=== PATIENT | female | born 1955 | race Caucasian/White ===

== ENCOUNTER 2017-08-05 15:27 | Inpatient (IN) | payer OTHER ==
[~2017-08-05] VITALS: Ht 172.7 cm; Wt 116.7 kg
--- NOTE | ~2017-08-05 | DS ---
[place], [place] DISCHARGE SUMMARY NAME: TA GONZALEZ UNIT #: [id number] ROOM: 314 DOCTOR: JANELLE SAN MD BIRTHDATE: [birth year] DOS: 08/09/2017 CHIEF COMPLAINT: "____ is wrong, you are the reason I was here last time." HISTORY OF PRESENT ILLNESS: This is a 62-year-old white female who is a resident of a local halfway who presented to the emergency room at [facility] acutely psychotic and agitated. While in the emergency room, she exhibited significant flight of ideas and was very bizarre. She was making bizarre comments and gestures, became very agitated and required multiple attempts to redirect and ultimately intramuscular injections to prevent harm to self and others. The halfway does report that her behavior has been escalating over the last several weeks prior to this admission and she has been threatening to other residents and staff. She has been taking her Clozaril and has been compliant with medication, so this decompensation is occurring well compliant with meds. She is admitted now to the [facility] to rule out organic factors and to attempt to stabilize on medication, returning to the least restrictive environment when psychiatrically stable. SUMMARY OF HOSPITAL COURSE: The patient was admitted to the unit where she initially was continued on her Clozaril 600 mg a day. When she was last here in 2014, she was stabilized on Invega Sustenna and had done quite well on that. She was rechallenged with oral Invega 6 mg in the morning and after tolerating a dose of this was given Invega Sustenna loading dose of 234 mg. After several days and continuation of her gross psychotic symptoms, her Clozaril was discontinued and she was started on Vraylar 1.5 mg a day, which was subsequently increased to 3 mg a day. She tolerated the Invega and the Vraylar well. She did exhibit some mild upper extremity tremor but that was not severe. Cogentin 1 mg twice daily was added with positive results. On the day of discharge, the patient's guardian had voiced a request to have her transferred to a [facility] facility where her benefits would cover and where she is well known by the facility. The patient was discharged then to the [facility] to have further treatment, ultimately returning to the least restrictive environment when psychiatrically stable. MENTAL STATUS AT DISCHARGE: The patient was alert and oriented. Mood still remained labile. Affect still at times is inappropriate. She remains silly and almost hebephrenic. She had word salad at times, but at other times, was able to carry on a reasonable conversation. She tended to be somewhat tangential, however, in her thinking. FINAL DIAGNOSIS: Schizoaffective disorder. PLAN: At this point in time, the patient's scripts have been printed and will be sent to her. The plan ultimately is to have her transferred from this psychiatric facility to another inpatient psychiatric facility within the [place] [facility]. [place], [place] DISCHARGE SUMMARY NAME: TA GONZALEZ UNIT #: [id number] ROOM: 314 DOCTOR: JANELLE SAN MD BIRTHDATE: [birth year] JANELLE SAN MD CM:DISCHBARBARA [id number] JANELLE SAN MD 08/12/17 0620 interface
--- NOTE | ~2017-08-05 | WRIGHTHP ---
[place], [place] PATIENT HISTORY AND PHYSICAL EXAM NAME: TA GONZALEZ UNIT #: [id number] ROOM: 314 DOCTOR: JANELLE SAN MD BIRTHDATE: [birth year] DOS: 08/06/2017 INITIAL PSYCHIATRIC EVALUATION. CHIEF COMPLAINT: "You're wrong, you're the reason why I was here last time." HISTORY OF PRESENT ILLNESS: This is a 62-year-old white female who is a resident of a local nursing home. The patient presented to the Emergency Room grossly psychotic and very agitated. While in the Emergency Room, she exhibited significant flight of ideas and was very bizarre. She was making very bizarre comments and gestures. She became very agitated and required multiple attempts to redirect. The nursing home reports that her behavior has escalated over the last several weeks prior to admission and that she has become threatening to other residents and staff. She has been taking her Clozaril, but seems to be decompensating nonetheless. She is admitted now to rule out organic factors to stabilize on medication, ultimately returning to the least restrictive environment when psychiatrically stable. MENTAL STATUS EXAMINATION: This morning, the patient is alert and oriented to person, place, unclear about time. She was not able to focus enough on the interview to give me specific answers. She did exhibit extreme mood lability and was in general manic and over exuberant. The patient tended to be rather flighty and jumped from topic to topic. She exhibited significant tangential thinking as well as word salad at times. I was not able to fully test memory because of her inability to totally. DIAGNOSIS: Schizoaffective disorder. PLAN: I have maintained her on her Clozaril dose of 600 mg a day. When she was last here in 2014, she had been stabilized on Invega Sustenna. I will restart Invega 6 mg in the morning and plan to load her with Invega Sustenna to try to break the psychosis. Given the fact that she decompensated well on the Clozaril, I may discontinue this agent and use a more metabolically friendly agent such as to see if we can impact more positively on her psychotic symptoms. We will engage her in individual and mendes milieu activity with the ultimate plan to return to the at least restrictive environment when psychiatrically stable. [place], [place] PATIENT HISTORY AND PHYSICAL EXAM NAME: TA GONZALEZ UNIT #: [id number] ROOM: [facility] DOCTOR: JANELLE SAN MD BIRTHDATE: [birth year] JANELLE SAN MD CM:HISPHYS:PATIENT HISTORY AND PHYSICAL EXAMINATION 2 3 JANELLE SAN MD 08/06/17943 interface
--- NOTE | ~2017-08-05 | PR ---
[place], [place] PROGRESS NOTE NAME: TA GONZALEZ UNIT #: [id number] ROOM: 314 DOCTOR: JANELLE SAN MD BIRTHDATE: [birth year] DOS: 08/07/2017 CHIEF COMPLAINT: "Yes, I come from a residential." SUMMARY OF THE VISIT: The patient was interviewed as she sat in the dining area waiting for breakfast. Upon my approach, she engaged readily in conversation. Her conversation was silly and disjointed. She presented much of the information with a singsong voice and was very silly and at times inappropriate. She was pleasant, however, and was not agitated in any fashion. There was no effort to be verbally or physically aggressive. Nurses report that she has been compliant with her medication and continues to be flighty and disjointed overall. She requires a great deal of support and redirection to maintain her ADLs. MENTAL STATUS: She is alert and oriented to person, place. It is unclear regarding time. Mood is still labile. Affect at times is very inappropriate. She does have flight of ideas and at times word salad. Memory is hard to ascertain because of her lack of cooperation. PLAN: Given the fact that she was compliant with the Clozaril, but decompensated nonetheless, I will go ahead and discontinue the Clozaril. Due to its risk of hyperglycemia and hyperlipidemia, I believe that a ____ atypical at this point would be warranted. She is compliant with the Invega and has tolerated it well and in the past was sustained with Invega Sustenna with good benefits. I will go ahead now and load her with Invega Sustenna 234 mg IM today, planning to give her the secondary loading dose of 156 mg in several days. I will start her on Vraylar 1.5 mg at bedtime as a secondary atypical to try to break the psychosis given her lengthy psychiatric history of schizoaffective disorder. We will engage her in individual and mendes milieu activity with the ultimate plan to return to the residential from which she came. JANELLE SAN MD CM:PNTRANS [phone] JANELLE SAN MD 08/07/17 180 interface
--- NOTE | ~2017-08-05 | PR ---
[place], [place] PROGRESS NOTE NAME: TA GONZALEZ UNIT #: [id number] ROOM: 314 DOCTOR: JANELLE SAN MD BIRTHDATE: [birth year] DOS: 08/08/2017 CHIEF COMPLAINT: "Oh look at him over there." SUMMARY OF THE VISIT: The patient was interviewed as she sat in the dining area waiting for her breakfast. She was sitting with a male peer. She was very attentive to him and engaged readily in conversation with me, albeit rather disjointed and fragmented. Her responses still tend to be tangential and at times, word salad, but she is pleasantly psychotic. There is a small amount of improvement in that she is able to engage more readily in meaningful conversation. Of note, she has significant upper extremity tremor which is not intensified when she puts her hands out, but is nonetheless present. MENTAL STATUS: She is alert and oriented. There is a great deal of fragmented thinking and she is tangential and again as mentioned previously, engages in word salad at times. Memory for most events seems to be intact, although it is very difficult to ascertain because of her psychotic symptomatology. PLAN: At this point in time, she was loaded with Invega Sustenna 234 mg on August 07. I will do a secondary loading dose of 156 mg IM on August 12. She is tolerating the Vraylar well at 1.5 mg at bedtime, so we will increase this to 3 mg at bedtime. Given the amount of tremor that she is having, we will add Cogentin 1 mg twice daily and monitor for improvement. We will continue to engage her in individual and mendes milieu activity. Continue to explore alternative placements and discharge when either psychiatrically stable or if the guardian requests to a VA facility for further treatment. JANELLE SAN MD CM:PNTRANS [phone] JANELLE SAN MD 08/08/17 1100 interface
[~2017-08-05 15:27] MED LIST: BENZTROPINE MESY1 MG PO; BENZTROPINE1 MG PO; BUSPIRONE10 MG PO; CEFTIN500 M1 PO; CLOZAPINE100 MG PO; DOCUSATE CALCI240 MG PO; EC NAPROSYN500 MG PO; HALDOL5 MG PO; INVEGA SUSTENN156 MG IM; LANAVITE1 CAP PO; LORAZEPAM2 MG PO; MOTRIN800 MG PO; MULTI VITAMINS1 TAB PO; SENORMIN50 MG PO; STOOL SOFTENER240 M2 PO
[2017-08-05 15:33] VITALS: BP 140/90
--- NOTE | 2017-08-05 16:11 | NUR ---
patient is resting with eyes closed in bed.
--- NOTE | 2017-08-05 16:32 | NUR ---
PATIENT RESTING COMFORTABLY IN ROOM, TALKING TO HERSELF OCCASIONALLY. PATIENT HAS BEEN UNGOWNED AT THIS TIME, AND IS WITHIN FULL VIEW OF THE NURSES STATION
--- NOTE | 2017-08-05 16:42 | NUR ---
WALLET, CIGARETTES, VOYAGE MANAGEMENT SYSTEM OPERATOR, PURSE, AND CLOTHING IN MEDICATIONS ROOM
[2017-08-05 16:54] LABS: BILIRUBIN NEGATIVE (NEGATIVE); BLOOD NEGATIVE (NEGATIVE); CLARITY CLEAR (CLEAR); COLOR YELLOW (YELLOW); GLUCOSE NEGATIVE (NEGATIVE); KETONE TRACE (NEGATIVE); LEUKO ESTERASE NEGATIVE (NEGATIVE); NITRITE NEGATIVE (NEGATIVE); UROBILINOGEN 0.2 E.U./dl (0.2-1.0)
[2017-08-05 16:56] LABS: BASO % 0.2 % (0.0-1.0); HEMATOCRIT 40.2 % (37.0-47.0); HEMOGLOBIN 13.5 g/dl (12.0-16.0); LYMPH # 2.3 10*3/uL (1.3-4.4); LYMPH % 21.1 % (27.0-41.0); MEAN CELL VOLUME 84.1 fl (81.0-99.0); MEAN CORPUSCULAR HGB 28.2 pg (27.0-31.0); MEAN CORPUSCULAR HGB CONC 33.6 g/dl (33.0-37.0); MEAN PLATELET VOLUME 10.9 fl (9.6-12.3); MONO # 0.8 10*3/uL (0.1-1.0); MONO % 7.8 % (3.0-9.0); NEUT # 7.6 10*3/uL (2.3-7.9); NEUT % 70.5 % (47.0-73.0); PLATELET COUNT AUTOMATED 173 10*3/uL (130-400); RED BLOOD COUNT 4.78 10*6/uL (4.10-5.10); RED CELL DISTRI WIDTH 15.2 % (0-14.5); WHITE BLOOD COUNT 10.7 10*3/uL (4.8-10.8)
[2017-08-05 17:03] LABS: RBC 0-2 rbc/hpf (0-2); URINE AMPHETAMINES < 1000 (1000ng/ml); URINE BARBITURATES < 200 (200ng/ml); URINE BENZODIAZEPINES < 200 (200ng/ml); URINE CANNABINOIDS (THC) < 50 (50ng/ml); URINE COCAINE < 300 (300ng/ml); URINE METHADONE < 300 (300ng/ml); URINE OPIATES < 300 (300ng/ml)
[2017-08-05 17:04] LABS: URINE PHENCYCLIDINE < 25 (25ng/ml)
[2017-08-05 17:13] LABS: ALBUMIN 3.4 gm/dl (3.1-4.5); ALKALINE PHOSPHATASE 118 U/L (45-117); BUN 14 mg/dl (7-24); CHLORIDE 97 mmol/L (98-107); CREATININE 0.72 mg/dL (0.55-1.02); SGOT/AST 20 IU/L (3-35); SGPT/ALT 18 U/L (12-78); SODIUM 132 mmol/L (136-145); TOTAL PROTEIN 7.4 gm/dL (6.4-8.2)
[2017-08-05 17:15] LABS: ACETAMINOPHEN (TYLENOL) < 2.0 ug/ml (10-30); ETHYL ALCOHOL < 3.0 mg/dl (<3)
--- NOTE | 2017-08-05 18:27 | NUR ---
CALLED [facility] TO INFORM OF PATIENT ADMISSION.
--- NOTE | 2017-08-05 18:40 | NUR ---
U STAFF GIVEN INFO ON PATIENT. WILL CALL BACK OR COME TO DEPT FOR PATIENT TRANSFER. PT REMAINS CALM AND COOPERATIVE, PLEASANT WITH ED STAFF.
--- NOTE | 2017-08-05 20:01 | NUR ---
RN TO CALL BACK TO ER FOR REPORT.
--- NOTE | 2017-08-05 20:04 | NUR ---
NURSE FROM [facility] IS GOING TO CONTACT [facility] TO GET LIST OF MEDICATIONS, SHE WILL THEN CALL DR. SAN AND GET ORDERS BEFORE COMING DOWN TO ER DEPT TO GET PATIENT.
--- NOTE | 2017-08-05 20:27 | NUR ---
CALLED [facility] & SPOKE WITH MICKIE RUBY ON RAILS DEVELOPER & SHE STATED THAT PT HAS A LEGAL GUARDIAN, PRITI COLE (PERSONNEL INTERVIEWER) & SHE HAS THE PAPER WORK BUT IS UNABLE TO FAX INFORMATION TONIGHT SHE DOESNT HAVE ACCESS TO A FAX MACHINE. STATED SHE WILL HAVE INFORMATION SENT TOMORROW. ALSO REVIEWED PTS MEDICATION LIST & UPDATED PTS MEDICAL HX.
--- NOTE | 2017-08-05 20:45 | NUR ---
DR SAN NOTIFIED OF ADMISSION WITH ORDERS RECEIVED. INFORMED DR SAN THAT PT HAS A LEGAL GUARDIAN & WAS UNABLE TO REACH HIM THIS EVENING SO ER DR WOULD HAVE TO PINK SLIP PT TONIGHT UNTIL VOLUNTARY CONSENT IS OBTAINED.
--- NOTE | 2017-08-05 20:47 | NUR ---
CALLED ED & SPOKE WITH OBI & INFORMED HIM THAT PT HAS A LEGAL GUARDIAN & ER DR WOULD HAVE TO PINK SLIP PT & HE STATED UNDERSTANDING.
--- NOTE | 2017-08-05 21:33 | NUR ---
[facility] TO COME DOWN TO ER TO GET PATIENT FOR ADMISSION TO THEIR UNIT. AWAITING RN TO COME DOWN
[2017-08-05] MEDS ORDERED: Depakote250 MG PO ×2 (21:35→21:37)
[2017-08-05] MEDS ORDERED: CLOZAPINE PO (21:41)
--- NOTE | 2017-08-05 22:15 | NUR ---
TA GONZALEZ a 62 year old F admitted via wheel chair from the EMERGENCY ROOM as a emergency 72 hr. hold admission. Arrived on unit at 2215. ALLERGIES: SULFA Vital signs are: [id number] 156/88. The client signed the following forms with stated understanding: Clothing List & PATIENTS RIGHTS. ATTEMPTED TO CONTACT PRITI COLE, LEGAL GUARDIAN FOR CONSENT FOR VOLUNTARY ADMISSION & RECEIVED ANSWERING MACHINE AT HIS OFFICE. Admitted under the services of Dr. JASWINDER CAPUTO,[facility]. A search was conducted and hazardous articles were removed. Client was oriented to the unit. PT IS VERY ELATED & JOVIAL WITH INAPPROPRIATE LAUGHTER. SPEECH IS TANGENTIAL & LOUD WITH FLIGHT OF IDEAS. GRANDIOSE DELUSIONS VOICED. ALERT & ORIENTED X 3. PT STATED THAT BOLOGNA WAS THROWN AWAY AT THE ASSISTED & SHE WENT TO GET IT OUT OF THE GARBAGE. CONVERSATION DOES FOCUS ON FOOD ITEMS. PT STATED THAT SHE LIKES VEGETABLES & BEANS & HAD A WONDERFUL TURKEY DINNER HERE BEFORE. STATED THAT SHE IS "PISSED OFF @ [facility] & NOT TALKING TO HER RIGHT NOW. SHE THREATENED TO SEND ME TO THE [facility]. SHE WANTS [facility]. TOUGH SHIT." MARIBETH LEWIS
[2017-08-05 22:53] VITALS: BP 156/88
[2017-08-05 22:59] VITALS: BP 156/88
--- NOTE | 2017-08-06 00:51 | NUR ---
DR LYNN NOTIFIED OF MEDICAL CONSULT. STATED TO PUT THE CONSULT UNDER DR BRYANT.
--- NOTE | 2017-08-06 05:55 | NUR ---
PT HAS BEEN OBSERVED ON Q 15 MIN CHECKS & HAS SLEPT QUIETLY THROUGHOUT THE SHIFT PAST 0015.
[2017-08-06 08:50] VITALS: BP 130/71
--- NOTE | 2017-08-06 08:53 | NUR ---
ON UNIT TO ASSESS PATIENT AT THIS TIME.
--- NOTE | 2017-08-06 09:39 | NUR ---
PATIENT ATE 90% OF BREAKFAST THIS MORNING. MEDICATION COMPLIANT WITH INVEGA. AWAITING PHARMACY TO BRING/FILL DEPAKOTE AT THIS TIME. BIZARRE BEHAVIORS OBSERVED FROM PATIENT DURING INTERACTIONS. SPEECH IS PRESSURED WITH FLIGHT OF IDEAS PRESENT. NO HALLUCINATION NOTED AT THIS TIME. INAPPROPRIATE LAUGHTER NOTED WHILE SITTING IN THE DINNING ROOM THROUGHOUT THE MORNING.
--- NOTE | 2017-08-06 12:34 | NUR ---
[facility], patient's information given, case resolution specialist Ela returned call, she stated patient is highly serviced and requested clinicals be faxed, these were faxed to Ela, per Ela, no beds available in [facility]
--- NOTE | 2017-08-06 16:20 | NUR ---
DR. CHARLES AND DR. NATHAN ON UNIT TO SEE PT AT THIS TIME, MADE AWARE OF ABNORMAL SODIUM LEVEL.
--- NOTE | 2017-08-06 18:20 | NUR ---
PT TO RADIOLOGY FOR CT OF HEAD AT THIS TIME WITH TRANSPORTER, SECURITY, AND [place].
--- NOTE | 2017-08-06 18:22 | NUR ---
JESSICA left VM at Guardian's Office about fax #. JESSICA received a VM back from office fax # [phone]. JESSICA askewd House Manager to fax VA form and admission paperwork for signature.
--- NOTE | 2017-08-06 18:29 | NUR ---
PT BACK TO UNIT AT THIS TIME.
--- NOTE | 2017-08-06 18:31 | NUR ---
PT IS ALERT AND ORIENTED TO PERSON. PSYCHOTIC THOUGHT PROCESS PRESENT. A/V HALLUCINATIONS QUESTIONED, ALTHOUGHT PATIENT DENIES, D/T PATIENT LOOKING AROUND UNIT, MOVING MOUTH, AND BLURTING OUT INAPPROPRIATE/NON SENSICAL STATEMENTS. LIMITED INTERACTIONS WITH PEERS, DOES NOT INITIATE CONVERSATIONS WITH PEERS. SITS TO HERSELF IN DAY ROOM EVEN WITH ENCOURAGE FROM STAFF. ENCOURAGED TO BE LESS ISOLATIVE WITH NO EFFECT. YELLS OUT INAPPROPRIATE COMMENTS TO STAFF THROUGHOUT THE DAY. WOUND CARE NURSE ON UNIT AND PATIENT YELLED OUT TO HER "PRETTY LIKE YOUR PUSSY!" REALITY PRESENTED/ RE-ORIENTED WITH MINIMAL EFFECT. BILATERAL HAND TREMORS PRESENT. MEDICATION COMPLIANT WITHOUT DIFFICULTY. POOR HYGIENE AND DISHEVELED DRESS NOTED. MINIMAL EYE CONTACT DURING INTERACTIONS WITH STAFF. APPETITE GOOD FOR MEALS. TAKING FLUIDS WELL. NAPS INTERMITTENTLY THROUGHOUT THE DAY FOR SHORT PERIODS OF TIME, TOTAL OF APPROPRIATELY 1-2 HOURS THIS SHIFT. INAPPROPRIATE LAUGHTER ALSO CONTINUES THROUGHOUT THE DAY. OTHERWISE, PATIENT HAS BEEN CALM AND COOPERATIVE DURING BIZARRE BEHAVIORS. AMBULATES INDEPENDENTLY WITH SLOW AND STEADY GAIT. WILL CONTINUE TO ENCOURAGE PT TO ATTEND AND PARTICIPATE IN GROUP THERAPY AND INCREASE POSITIVE/ APPROPRIATE INTERACTIONS WITH PEERS AND STAFF. WILL CONTINUE WITH Q15 MIN OBSERVATION CHECSK PER ORDERS. RESPIRATIONS EASY AND EVEN ON ROOM AIR. NO ACUTE DISTRESS NOTED. SEE [facility] FLOWSHEET FOR SPECIFIC MONITORING.
[2017-08-06 20:00] VITALS: BP 134/74
[2017-08-06 21:02] VITALS: BP 134/74
--- NOTE | 2017-08-06 22:10 | NUR ---
24 HR chart check completed.
--- NOTE | 2017-08-07 06:19 | NUR ---
PT HAS BEEN OBSERVED ON Q 15 MIN CHECKS & HAS SLEPT QUIETLY THROUGHOUT THE SHIFT PAST 2244.
--- NOTE | 2017-08-07 07:32 | NUR ---
Exercise/Trivia-Morning group BINGO-Afternoon group Morning group of exercise helps patients stay active and joints mobile,trivia helps with socialization,thinking and focusing Afternoon group helps with socialization,thinking,focusing and self esteem This Patient did attend both groups as wellas participate. This patient followed direction and focused well during exercise. Put during trivia patient was yelling out and giggling. Patient stated some inappropriate things x2 and was reminded we do not speak that way. Patient redirected. Patient did not participate in trivia. patient refused to join other patient at larger table saying she was fine where she was and only wanted to watch. Patient did participate during BINGO with 1:1 help. Patient giggled and talked with herself. Patient redirected multipule times
[2017-08-07 08:17] VITALS: BP 137/75
--- NOTE | 2017-08-07 11:35 | NUR ---
PT RECEIVED INVEGA SUSTENNA IM INJECTION TO RIGHT DELTOID.
--- NOTE | 2017-08-07 15:37 | NUR ---
PT ALERT TO PERSON AND PLACE. PT MED COMPLIANT WITHOUT DIFFICULTY, MED EDUCATION PROVIDED. PT OBSERVED T0 BE TALKING TO UNFORSEEN OTHERS AT TIMES, INAPPROPRIATE LAUGHTER NOTED AT TIMES. PT CALM, INTERACTING AND PARTICIPATING IN GROUPS WITH OTHERS. PT DENIES ANY HOMICIDAL/SUICIDAL THOUGHTS. NO AGGRESSION OR COMBATIVE BEHAVIOR NOTED. PT AMBULATORY THROUGHOUT UNIT, GAIT STEADY. PT CONTINENT OF BOWEL AND BLADDER. PLAN IS TO ENCOURAGE PT TO PARTICIPATE IN GROUPS/ACTIVITIES, MONITOR BEHAVIORS ON Q15 MIN SAFETY CHECKS.
--- NOTE | 2017-08-07 19:36 | NUR ---
SW RECEIVED vm FROM [facility] AND RETRUNED CALL. aTTOENRY Payam Silva WOULD LIKE pT TRANSFERRED TO va AT [facility]. HE WILL BE IN TO VISIT. ON SATURDAY. PT DOES HAVE MEDICARE AND [place] COVERAGE.
[2017-08-07 20:12] VITALS: BP 117/68
--- NOTE | 2017-08-07 22:10 | NUR ---
PATIENT LAYING IN BED TALKING AND LAUGHING WITH SELF. THIS NURSE ASKED PATIENT WHO SHE WAS TALKING TO AND PATIENT STATED NO ONE. PATIENT EUPHORIC AND ANIMATED. PATIENT PLEASANT AND COOPERATIVE. MEDICATION COMPLIANT
--- NOTE | 2017-08-08 03:14 | NUR ---
B: ALTERED MENTAL STATUS I: THERAPEUTIC COMMUNICATION, 1:1 R: I FEEL JUST FINE RIGHT NOW P: MEDICATION COMPLIANCE, PARTICIPATE IN GROUP ACTIVITIES
--- NOTE | 2017-08-08 05:18 | NUR ---
24 HR chart check completed.
--- NOTE | 2017-08-08 05:53 | NUR ---
Q 15 MINUTE SAFETY CHECKS MAINTAINED. SLEPT > 6 HRS THROUGHOUT SHIFT
[2017-08-08 07:56] VITALS: BP 118/66
--- NOTE | 2017-08-08 08:04 | NUR ---
Exercise/Letter to yourself-morning group. Helps with self esteem,coping skillsfocusing and creativity when decorating card. BINGO-Afternoon group. This helps withsocializing self esteem,focusing and concentation. Patient did attend both morning and afternoon groups. Patient followed dircetion and stated on task but would giggle and speak to herself.Patient did very well when writing to herself,she did not want it mailed but requested i keep it until she goes home.Patient followed direction well. Patient was inattendence for BINGO but choose not to participate. Made suggetions to patient of activity she could do herslf and patient choose a book and sat very quietly during group reading. Patient stayed on task for at least 65 minutes
[2017-08-08 08:33] LABS: BUN 10 mg/dl (7-24); CHLORIDE 100 mmol/L (98-107); CREATININE 0.67 mg/dL (0.55-1.02); POTASSIUM 4.2 mmol/L (3.5-5.1); SODIUM 137 mmol/L (136-145)
--- NOTE | 2017-08-08 10:49 | NUR ---
PT IS ALERT AND ORIENTED TO PERSON AND PLACE. DIFFICULT TO ASSESS MEMORY D/T CONTINUATION OF PSYCHOTIC THOUGHT PROCESSES. PT CONTINUES TO EXHIBIT QUESTIONABLE A/V HALLUCINATIONS PT IS NOTED TO BE MOVING MOUTH THOUGH TALKING TO HERSELF OR UNSEEN OTHERS AND GLANCING AROUND THE ROOM DESPITE PT'S DENIAL OF HALLUCINATIONS. PT DENIES SI/HI. PT IS PLEASANT AND COOPERATIVE, CONTINUES WITH INAPPROPRIATE/NON-SENSICAL SPEECH AT TIMES. PT CONTINUES TO SIT IN DINING ROOM IN CORNER WITH LIMITED INTERACTIONS WITH STAFF AND PEERS DESPITE ENCOURAGEMENT. REALITY ORIENTATION PROVIDED WITH MINIMAL SUCCESS. WILL CONTINUE TO PROVIDE REALITY ORIENTATION AND ENCOURAGE PARTICIPATING IN GROUPS AND SOCAILIZATION APPROPRIATE. TREMORS TO BUE CONTINUE, DR. SAN AWARE, N.O FOR COGENTIN STARTED THIS AM. WILL MONITOR FOR EFFECTIVENESS. PT IS MEDICATION COMPLIANT WITHOUT DIFFICULTY. AMBULATORY WITH STEADY GAIT, INDEPENDENT WITH ADLS, CONTINENT OF BOWEL AND BLADDER, DISPLAYS GOOD APPETITE WITH ADEQUATE FLUID INTAKE. NO DISTRESS NOTED. Q15 MIN SAFETY CHECKS MAINTAINED, REFER TO [facility] FLOWSHEET FOR SPECIFIC MONITORING.
--- NOTE | 2017-08-08 10:55 | NUR ---
Patient not available for Occupational Therapy evaluation this date as he is in group therapy. OTR will attempt at a later date. Thank you for this referral. Vicky Kim OTR/ikrt
--- NOTE | 2017-08-08 12:53 | NUR ---
Exercise/Reminiscing This is a good group to help patients stay active and help with memory,concentration,focusing, thinking and socializing. This patient did attend group but only participated in the exercise portion of group. during this time patient had to be reminded 3-4x to not interupt group with speaking or giggling.Patient was redirected back to participation. during "rowing" of the arms patient will lead everyone in the song "row row row your boat." Patient refused to participate in the reminiscing portion of the group but sat quietly while other patients reminisced
--- NOTE | 2017-08-08 13:55 | NUR ---
PT AGITATED AND ANXIOUS FOLLOWING VISIT FROM GUARDIAN, PT UPSET BECAUSE SHE HAD HAD A LUNCH DATE SCHEDULED WITH HER GUARDIAN FOR TODAY PRIOR TO ADMISSION TO THE HOSPITAL. PT REQUESTING MEDICATION TO CALM DOWN, SPEECH PRESSURED, NONSENSICAL AT TIMES, PT VISIBLY ANXIOUS/UPSET, REDIRECTION AND 1:1 TECHNIQUES USED AND THERAPEUTIC COMMUNICATION FACILITATED BY RN WITH POSITIVE EFFECT. NO PRN MEDICATION REQUIRED AT THIS TIME, WILL CONT TO MONITOR.
--- NOTE | 2017-08-08 16:52 | NUR ---
SHIFT CHART CHECK COMPLETED.
--- NOTE | 2017-08-08 17:59 | NUR ---
PT EXHIBITING SIGNS OF AUDITORY HALLUCINATIONS AT THIS TIME, TALKING TO UNSEEN OTHERS, CONVERSATION OF A VULGAR AND VIOLENT NATURE. REDIRECTION PROVIDED WITH MINIMAL EFFECT.
--- NOTE | 2017-08-08 18:00 | NUR ---
PT REFUSED ALL MEALS THIS SHIFT DESPITE ENCOURAGEMENT FROM STAFF, WHEN QUESTIONING PT TO WHY SHE WASN'T EATING, PT WAVED HER HAND AT THIS NURSE GESTURING FOR THIS NURSE TO LEAVE HER PRESENCE, REFUSED TO ELABORATE WHY SHE WOULDN'T EAT AND DECLINED ORDERING A DIFFERENT MEAL.
--- NOTE | 2017-08-08 18:20 | NUR ---
PT SITTING IN DINING ROOM YELLING AT UNSEEN OTHERS, THIS NURSE APPROACHED PT, PT STATES "I'M FINE. I'M JUST GONNA GO BHARGAV CARRILLO UP AT [employer]. BYE!" PT ALSO STATES "I HAVE CROTCHES. TONS OF CROTCHES UP MY ASS. YOU DON'T HAVE A JOB AND YOU NEVER WILL." REDIRECTION MINIMALLY INEFFECTIVE. PT WITH OUTBURTS OF INAPPROPRIATE LAUGHTER. PT REDIRECTED TO QUIET ROOM, PT REFUSED TO RELOCATE FROM DINING ROOM. STAFF SITTING IN DINING ROOM, WILL CONT TO MONITOR.
--- NOTE | 2017-08-08 18:32 | NUR ---
PT CONTINUES TO SIT IN DINING ROOM YELLING, USING PROFANE LANGUAGE, INAPPROPRATE LAUGHTER, HAVING MULTIPLE CONVERSATIONS WITH UNSEEN OTHERS, ONE CONVERSATION REVOLVES AROUND THE 'MAFIA' AND ANOTHER AROUND RACIAL SLURS. PT APPEARS MANIC, SPEECH IS PRESSURED, LOUD, TANGENTIAL WITH FLIGHT OF IDEAS AND NONSENSICAL AT TIMES D/T WORD SALAD. REDIRECTION AND 1:1 INEFFECTIVE. PT WAS GIVEN PO ATIVAN 1MG AT 1825, PT STATES "OH GOOD. ATIVAN, YEP, THAT'LL CALM ME DOWN IN ONE MINUTE, YEP. YEP. EMERITA FELDER." PT STATES TO THIS NURSE "YUP, YOU ARE MASSALION TIGERS!" WILL MONITOR FOR CHANGES.
[2017-08-08 19:40] VITALS: BP 146/79
--- NOTE | 2017-08-08 20:00 | NUR ---
SW CALLED [facility] AND LEFT FOR BEDCOUNT FOR TRANSFER OF PT. fEMALE BEDS ARE AVAILBLE.
--- NOTE | 2017-08-08 20:01 | NUR ---
SW MEET WITH DORIAN QUINTANILLA. aTTORNEWBeata COLE SIGNED FORMS. HE WOULD LIKE PT TRANSFERRED TO [facility] DUE TO THEM KNOWING HER BETTER. JESSICA WILL HAVE CM FAXED FORM BACK TO [place] FOR TRANSFER.
--- NOTE | 2017-08-08 20:02 | NUR ---
SW FAXED [facility] FORM TO CM OFFICE AND LEFT VM FOR THEM REGARDING TRANSFER.
--- NOTE | 2017-08-09 00:22 | NUR ---
DURING MED PASS PT HAD INAPPROPRIATE LAUGHING, CALLING ANOTHER NURSE "PIG, PIG, PIG, PIG" PT THEN ATTEMPTED TO FOLLOW NURSE DOWN THE HALLWAY AND TRIED TO ELOPE PUSHING ON THE DOORS. PT WAS REDIRECTABLE AFTER MULTIPLE PROMPTS. MEDICATION COMPLIANT. AFTER PT RETIRED TO BED PT DEESCULATED. NO FURTHER INAPPROPRIATE BEHAVIORS NOTED AT THIS TIME.
--- NOTE | 2017-08-09 01:16 | NUR ---
24 HR chart check completed.
--- NOTE | 2017-08-09 06:21 | NUR ---
PT SLEPT APPROXIMATELY 7 HOURS THIS SHIFT. NO S/S OF DISTRESS NOTED. NO C/O PAIN. SEE [facility] FLOWSHEET FOR SPECIFIC MONITORING. Q15 MINUTE SAFETY CHECKS MAINTAINED.
--- NOTE | 2017-08-09 07:05 | NUR ---
PT BEING LOUD AND DISRUPTIVE. USING VULGAR LANGUAGE. PT WAS YELLING AT OTHER PTS AND GETTING ANOTHER PT AGITATED TO THE POINT THE OTHER PT GOT UP TO GO AFTER THIS PT AND 2 NURSES HAD TO STEP INBETWEEN THEM TO PREVENT A DISPUTE. PRN ATIVAN 1MG GIVEN AT THIS TIME.
--- NOTE | 2017-08-09 07:51 | NUR ---
Seasons/Reminiscing -Afternoon (08/08/17) This group helps a patient with memory, concentration,thinking,and socialization. Patient did come to group but constantly interupted by yelling out,using inappropriate words and could not be redirected. reminded patient of not using those types of words and if she could not stop yelling out and interupting she would have to leave the room. Patient left group
[2017-08-09 08:00] VITALS: BP 137/82
--- NOTE | 2017-08-09 08:37 | NUR ---
TREATMENT TEAM WAS HELD WITH THE FOLLOWING: DR. SAN, RN.AT.. PT MAY BE TRANSFERRED TO [facility] PER GUARDIAN REQUEST. PAERS WERE FAXED YESTERDAY.
[2017-08-09] MEDS ORDERED: BENZTROPINE MESY1 MG PO (09:53)
[2017-08-09] MEDS ORDERED: VRAYLAR3 MG PO (09:53)
[2017-08-09] MEDS ORDERED: PALIPERIDONE ER6 MG PO (09:53)
[2017-08-09] MEDS ORDERED: INVEGA SUSTENN156 MG IM (09:53)
--- NOTE | 2017-08-09 11:45 | NUR ---
spoke with Dr. sotelo in regards to possible transfer of pt. to the via. Dr. sotelo states that if the Guardian approves such d/c he has no authority to override that decision if a bed is available. spoke with JESSICA Caldera who states that [facility] signed the [facility] yesterday and faxed it to the dept[facility] to fax to the [facility]. spoke with Lena Cisneros who sates she spoke with JESSICA RAND who is to fax updated information to the [facility] and facilitate thru [facility] at the [facility] the [facility].
--- NOTE | 2017-08-09 13:13 | NUR ---
Exercise/Independent Activity Exercise helps with staying active, circulation, joints mobile. And indepedent activity allows a patient to choose what they want to do which helps them think and concentrate Patient did attend group this morning as well as participated. Patient needed reminded not to interupt while anyone was talking several times. Pkept stating she was "brain damaged." Patient was redirected several times. Patient sings "row row row your boat" while exercising. Patient choose to draw as her activity so she did not need very much 1:1. Patient talked to herself while drawing pictures.
--- NOTE | 2017-08-09 13:32 | NUR ---
NOTIFIED ON PT DISCHARGE SET FOR 1430. NO FURTHER ORDERS AT THIS TIME.
--- NOTE | 2017-08-09 13:37 | NUR ---
PT ALERT TO PERSON AND PLACE. PT MED COMPLIANT WITHOUT DIFFICULTY. PT OBSERVED TO BE SPEAKNG TO UNFORSEEN OTHERS. SPEECH IS LOUD AND PRESSURED.PT CAN BE INTRUSIVE AND DISRUPTIVE TO OTHERS. PT DENIES ANY HOMICIDAL/SUICIDAL THOUGHTS. PT AMBULATORY THROUGHOUT UNIT, GAIT STEADY. PT CONTINENT OF BOWEL AND BLADDER. PLAN IS TO ENCOURAGE PT TO PARTICIPATE IN GROUPS/ACTIVITIES, MONITOR BEHAVIOR ON Q15 MIN SAFTEY CHECLS.
--- NOTE | 2017-08-09 14:18 | NUR ---
NURSE TO NURSE REPORT GIVEN TO CHAYA, CHARGE NURSE, AT THE [facility].
--- NOTE | 2017-08-09 15:30 | NUR ---
Decorating pumpkins This will be benificial to the patient because theyll need to think and concentrate,helps with socialization and self esteem. Patient did attend group today as well as participate. Patient interuppted other people,myself included, while they were talking numerous times. Patient was reminded she needed to listen to what staff is saying and not interupt.Patient choose to color rather than decorate her pumpkin.
--- NOTE | 2017-08-09 16:57 | NUR ---
JESSICA RECEIVED VM AND CALL FROM [facility] TESSY . JESSICA FAXED INFORMATION FOR [facility] TO REVIEW. TESSY SHORT CALL BACK AFTER SHE SPEAKS WITH PSYCHIARTRIST.
--- NOTE | 2017-08-09 16:58 | NUR ---
JESSICA SPOKE WITH TESSY. SHE WILL BE SPEAKIG [facility]CHI[facility] AT 12:30PM. JESSICA GAVE DR. SAN'S INFORMATION SO THAT DR TO CAN BEEN DONE. TESSY WILL CALL BACK AFTER THAT IS DONE.
--- NOTE | 2017-08-09 17:00 | NUR ---
TESSY - PABLO CALLED. UNABLE TO REACH DR. SAN AND WANTED TO CHECK NUMBER. CALLED DR SAN TO INFORM THAT [facility] TRYING TO GET HIM. DR. SAN DRIVING AND WILL TAKE CALL. TESSY PITTS HER DR KNOW TO CALL DR. SAN.
--- NOTE | 2017-08-09 17:01 | NUR ---
TESSY PABLO CALLED BACK. PT IS ACCEPTED AND SHE'LL ARRANGED TRANSPORTATION. IT WILBE A COUPLE HOURS AT LEAST. NURSE TO NURSE NUMBER [phone] EXT. 1600 CARE POWER - [address] FITZPATRICK.
--- NOTE | 2017-08-09 17:03 | NUR ---
SW COMPLETED DISCHARGE PAPERWORK AND MADE COPY FOR [facility] AND [facility] TO SEND SIGNATURE PAGES TO GUARDIAN.
--- NOTE | 2017-08-09 17:03 | NUR ---
JESSICA LEFT FOR [facility] PRITI COLE INFORMING THAT [facility]ERRED TODAY.
--- NOTE | 2017-08-09 17:24 | NUR ---
PT DISCHARGED TO [facility]IA [facility]BULANCE.
== END 2017-08-09 17:25 | disposition short-term general hospital (02) | DRG 885 ==
LOC: ED 15:27 → 3N 20:55
PROVIDERS: Internal Medicine; Nurse Practitioner Family; ADMIT Psychiatry & Neurology Psychiatry
DX: F25.0 Schizoaffective disorder, bipolar type (principal); E87.1 Hypo-osmolality and hyponatremia; I10 Essential (primary) hypertension; F41.9 Anxiety disorder, unspecified; E55.9 Vitamin D deficiency, unspecified; Z79.899 Other long term (current) drug therapy; Z88.2 Allergy status to sulfonamides